=== PATIENT | female | born 1950 | race Caucasian/White ===

== ENCOUNTER 2024-12-22 13:44 | Emergency (ER) | payer MEDICARE, OTHER, SELFPAY ==
[2024-12-22 13:46] VITALS: BP 141/74
[2024-12-22 15:08] VITALS: BP 125/67
[2024-12-22 15:33] VITALS: BP 125/67; BMI 31.4
--- NOTE | 2024-12-22 15:58 | ED.GENMED ---
History of Present Illness
<Holly Ruiz PA-C - Last Filed: 12/24/24 01:34>
General
Chief Complaint: Bowel Problem
Source: patient
Exam Limitations: none
Time Seen by Provider: 12/22/24 15:47
Nursing documentation reviewed up to this point in time: agreed with
History of Present Illness
History of Present Illness:
TIME OF INITIAL EVALUATION
-3:45PM
REVIEW OF OLD RECORDS
- History of cholecystectomy and appendectomy
Note:
CHIEF COMPLAINT(S)
Urinary frequency and abdominal pain.
HISTORY OF PRESENT ILLNESS
The patient is a 74-year-old female presenting with urinary frequency and abdominal pain. The urinary symptoms began approximately two days ago and are characterized by increased frequency and mild burning sensation, similar to a urinary tract
infection, but without hematuria. The patient reports a history of urinary frequency since undergoing bilateral knee replacement surgery in 2014, which has recently worsened.
The lower abdominal pain began three days ago, described as severe and intermittent, initially severe enough to disrupt sleep over two nights. The pain subsided and then recurred. The patient reports continuous pain at rest and during urination.
She also reports constipation, with the last bowel movement occurring three days ago, and describes her stool as inconsistent, alternating between heena and diarrhea.
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 Patient denies fever or vomiting but reports increased thirst and decreased appetite over the last few days, consuming
mainly peanut butter, rice cakes, and yogurt.
The patient does not recall any specific factors relieving or worsening the symptoms. She has a past surgical history of cholecystectomy and appendectomy.
PHYSICAL EXAM
- Vitals: Hypertensive, otherwise vital signs stable. Afebrile
- General: Well appearing in no distress
- HEENT: Moist oral mucosa
- Cardiovascular: No murmurs, normal heart rate, regular rhythm, No chest wall tenderness
- Pulmonary: No respiratory distress, breath sounds are clear and equal
- Abdomen: Soft, diffuse lower abdominal tenderness with voluntary guarding. No rebound tenderness. No CVA tenderness.
- Neurologic: Excellent strength all extremities, no coordination deficits
- Psychiatric: Appropriate mental status, normal insight and judgement
- Extremities: Nontender, no edema, moves all extremities equally
- Skin: No rash, no lesions
PLAN
1. Order laboratory tests, including urinalysis, to assess for infection.
2. Obtain CT scan of the abdomen and pelvis to evaluate potential causes of abdominal pain, such as bladder or intestinal issues.
3. Administer intravenous fluids due to decreased oral intake and increased thirst. Patient declines analgesia.
4. Monitor and treat potential constipation if confirmed by imaging and lab work.
DIFFERENTIAL DIAGNOSIS
The Differential Diagnosis includes, in no particular order and is not limited to:
1. Urinary Tract Infection
2. Bladder dysfunction or prolapse
3. Constipation
4. Bowel obstruction
5. Diverticulitis
6. Irritable Bowel Syndrome
7. Dehydration
8. Cystitis
9. Pelvic inflammatory disease
10. Ovarian pathology
RADIOLOGY
- CT scan abdomen/pelvis ordered
LABS
- Labs reviewed significant for a leukocytosis of 13.7. Chemistry unremarkable. Urine appears infected as noted by nitrite positive, 2+ leukocyte esterase and moderate bacteria however few WBCs.
UPDATE
- Case signed out to Olga Vizcarra PA-C pending CT report
Review of Systems
<Holly Ruiz PA-C - Last Filed: 12/24/24 01:34>
Review of Systems
Allergies reviewed?: Yes
All Other Systems: ROS reviewed and negative except as documented in HPI and ROS
Phy Exam
<Holly Ruiz PA-C - Last Filed: 12/24/24 01:34>
Physical Exam
Physical Exam:
See HPI
Course
<Holly Ruiz PA-C - Last Filed: 12/24/24 01:34>
Orders/Labs/Results
Orders:
Orders
12/22/24 16:21
0.9% Sodium Chloride 1000 ml [Nss] 1,000 ml IV BOLUS
12/22/24 16:24
CT Abd/pelvis W Iv Cont Urgent
Comment:
Reason For Exam: lower abd pain, constipation, urinary frequency
12/22/24 16:59
Basic Metabolic Panel Urgent
Complete Blood Count/With Diff Urgent
Lipase Urgent
Urinalysis Reflex To Culture Urgent
Date Specimen was Collected: 12/22/24
Time Specimen was Collected: 16:58
Urine Microscopic Reflex Cult Urgent
Urine Culture Urgent
ZOE Source: U
Specimen Description:
Date Specimen was Collected: 12/22/24
Time Specimen was Collected: 16:58
12/22/24 19:00
Amoxicillin 875 mg/Clav 125 mg [Augmentin 875 mg/125 mg] 1 tablet PO NOW STA
Ketorolac [Toradol] 15 mg IV NOW STA
Abnormal Lab Results
12/22/24
16:59
WBC 13.7 H 10^3/uL
(4.8-10.8)
RBC 3.82 L 10^6/uL
(4.20-5.40)
Hgb 11.9 L g/dL
(12.0-16.0)
Hct 35.5 L %
(37.0-47.0)
MCH 31.2 H pg
(27.0-31.0)
Abs Immat Gran (auto) 0.1 H 10^3/uL
(0-0.05)
Absolute Neuts (auto) 10.1 H 10^3/uL
(1.4-6.5)
Absolute Monos (auto) 1.6 H 10^3/uL
(0.1-0.6)
Lymphocytes % 12.4 L %
(20.5-51.1)
Monocytes % 11.9 H %
(1.7-9.3)
Sodium 134 L mmol/L
(135-145)
Urine Ketones 3+ A
(Negative)
Ur Occult Blood Reflex 1+ A
(Negative)
Urine Nitrite (Reflex) Positive A
(Negative)
Leukocyte Esterase Rfl 2+ A
(Negative)
Urine Bacteria (Reflex) Moderate A
(Negative)
Urine Albumin (Reflex) 2+ A
(Neg - Trace)
12/22/24 16:59
12/22/24 16:59
Vital Signs
Initial and Last Documented VS:
Initial Vital Signs
Temp Pulse Resp BP Pulse Ox
98.3 F 88 16 141/74 98
12/22/24 13:46 12/22/24 13:46 12/22/24 13:46 12/22/24 13:46 12/22/24 13:46
Last Documented Vital Signs
Temp Pulse Resp BP Pulse Ox
97.9 F 72 18 139/84 97
12/22/24 19:21 12/22/24 19:21 12/22/24 19:21 12/22/24 19:21 12/22/24 19:21
Evelialt;Olga Vizcarra PA-C - Last Filed: 12/22/24 20:32>
Orders/Labs/Results
Orders:
Orders
12/22/24 16:21
0.9% Sodium Chloride 1000 ml [Nss] 1,000 ml IV BOLUS
12/22/24 16:24
CT Abd/pelvis W Iv Cont Urgent
Comment:
Reason For Exam: lower abd pain, constipation, urinary frequency
12/22/24 16:59
Basic Metabolic Panel Urgent
Complete Blood Count/With Diff Urgent
Lipase Urgent
Urinalysis Reflex To Culture Urgent
Date Specimen was Collected: 12/22/24
Time Specimen was Collected: 16:58
Urine Microscopic Reflex Cult Urgent
Urine Culture Urgent
ZOE Source: U
Specimen Description:
Date Specimen was Collected: 12/22/24
Time Specimen was Collected: 16:58
12/22/24 19:00
Amoxicillin 875 mg/Clav 125 mg [Augmentin 875 mg/125 mg] 1 tablet PO NOW STA
Ketorolac [Toradol] 15 mg IV NOW STA
Abnormal Lab Results
12/22/24
16:59
WBC 13.7 H 10^3/uL
(4.8-10.8)
RBC 3.82 L 10^6/uL
(4.20-5.40)
Hgb 11.9 L g/dL
(12.0-16.0)
Hct 35.5 L %
(37.0-47.0)
MCH 31.2 H pg
(27.0-31.0)
Abs Immat Gran (auto) 0.1 H 10^3/uL
(0-0.05)
Absolute Neuts (auto) 10.1 H 10^3/uL
(1.4-6.5)
Absolute Monos (auto) 1.6 H 10^3/uL
(0.1-0.6)
Lymphocytes % 12.4 L %
(20.5-51.1)
Monocytes % 11.9 H %
(1.7-9.3)
Sodium 134 L mmol/L
(135-145)
Urine Ketones 3+ A
(Negative)
Ur Occult Blood Reflex 1+ A
(Negative)
Urine Nitrite (Reflex) Positive A
(Negative)
Leukocyte Esterase Rfl 2+ A
(Negative)
Urine Bacteria (Reflex) Moderate A
(Negative)
Urine Albumin (Reflex) 2+ A
(Neg - Trace)
12/22/24 16:59
12/22/24 16:59
Vital Signs
Initial and Last Documented VS:
Initial Vital Signs
Temp Pulse Resp BP Pulse Ox
98.3 F 88 16 141/74 98
12/22/24 13:46 12/22/24 13:46 12/22/24 13:46 12/22/24 13:46 12/22/24 13:46
Last Documented Vital Signs
Temp Pulse Resp BP Pulse Ox
97.9 F 72 18 139/84 97
12/22/24 19:21 12/22/24 19:21 12/22/24 19:21 12/22/24 19:21 12/22/24 19:21
<Holly Ruiz PA-C - Last Filed: 12/24/24 01:34>
*Radiology
Radiology exam reviewed: radiology read reviewed
*Pulse Oximetry
SaO2: 96
Oxygen Mode of Delivery: Room air
Patient hypoxic: no
*EKG
Interpreted by ED Provider?: NA
*Technical Writing Lead/Mgr Interpretation
Rate: Technical Writing Lead/Mgr- N/A
*Critical Care Note
Total Time (30-74mins, 75-104mins- exclusive of procedures): Not Applicable
<Olga Vizcarra PA-C - Last Filed: 12/22/24 20:32>
Update Note
Update Note:
Update
I received patient in signout. On my evaluation, patient is well-appearing in no acute distress. She has minimal abdominal tenderness on exam but is requesting a dose of pain medication prior to discharge. Will order dose of Toradol. CT scan
reveals acute diverticulitis with no evidence of perforation as well as acute cystitis. She is a candidate for outpatient abx therapy as she is afebrile, she is tolerating p.o. intake, she has a reassuring abdominal exam. Will send Augmentin to
patient's pharmacy. Strict return precautions discussed. Patient stable for discharge. Patient does have no primary care provider to follow-up with. I did send patient's information to the PCP request hotline and will give patient a number to
schedule appointment.
ED Attending Note
<Holly Ruiz PA-C - Last Filed: 12/24/24 01:34>
-
Portions of this chart may have been created with voice recognition software.� Occasional wrong word or��sound alike� substitutions may have occurred due to the inherent limitations of voice recognition software.
Discharge Plan
Departure
Patient Disposition: Home (Routine Discharge)
Date of Disposition: 12/22/24
Time of Disposition: 19:11
Patient with high blood pressure during this ER visit?: Yes
Condition: Good
Discharge Problem:
Acute cystitis, Acute diverticulitis
Instructions: Urinary tract infection - Discharge instructions, Diverticulitis - Discharge instructions
Prescriptions:
New
amoxicillin-pot clavulanate 875-125 mg tablet
1 tab PO BID 10 Days Qty: 20 0RF
No Action
latanoprost 1 DROP drops
1 drp BOTH EYES HS
methylphenidate HCl 10 MG tablet
20 mg PO BID Qty: 0 0RF
duloxetine 60 MG capsule,delayed release(DR/EC)
120 mg PO DAILY
levothyroxine 75 MCG tablet
75 mcg PO TH
levothyroxine 75 MCG tablet
75 mcg PO SUMOWEFRSA
bupropion HCl 150 MG tablet extended release 24 hr
150 mg PO DAILY
pumpkin seed extract-soy germ [Azo Bladder Control] 300 MG capsule
1 cap PO BID
Bio 4x 1 CAP
1 cap PO MEALS
Carb C6 1 CAP
1 cap PO DAILY
nebivolol [Bystolic] 5 MG tablet
1 tab PO HS
sennosides [senna] 1 TABLET tablet
2 tab PO BID 0RF
acetaminophen 325 MG tablet
650 mg PO Q6H Qty: 1 0RF
Rx Instructions:
*DO NOT EXCEED 4000/MG/24H
magnesium hydroxide 30 ML suspension
30 ml PO HS Qty: 1 0RF
Rx Instructions:
take nightly until bm
aspirin 325 MG tablet,delayed release (DR/EC)
325 mg PO DAILY 0RF
levothyroxine 150 MCG tablet
150 mcg PO TU@0700 0RF
oxycodone 5 MG tablet
5 mg PO Q4HPRN PRN (Reason: severe pain) Qty: 30 0RF
Rx Instructions:
dx tka
ongoing therapy
famotidine 20 MG tablet
20 mg PO HS Qty: 30 0RF
Rx Instructions:
TAKE WHILE OF ASA AND ADVIL
ibuprofen 200 MG tablet
400 mg PO BID Qty: 1 0RF
Rx Instructions:
*WITH FOOD
*DO NOT TAKE WITHIN 2 HR OF ASA
vitamins A,C,O-rpxe-jlbjky [PreserVision AREDS] 1 CAP capsule
1 cap PO BID Qty: 0 0RF
Rx Instructions:
RESUME 5 DAYS
Referrals:
Tato Lambert MD [Active, Gastroenterology] - Call in 1-3 days for appt
Destin Henriquez MD [Active, Family Practice] - Call in 1-3 days for appt
UNKNOWN - PT DOES,NOT KNOW [Family Provider]
Activity Restrictions/Additional Instructions:
Augmentin has been sent to your pharmacy. Please take 1 tablet twice daily for 10 days.
Please call attached number to schedule follow-up appointment with the PCP. I did send your information to our PCP request hotline.
PLEASE RETURN EMERGENCY DEPARTMENT SHOULD YOU DEVELOP FEVERS OR CHILLS, ACUTE WORSENING OF YOUR PAIN, LIGHTHEADEDNESS, DIZZINESS, CHEST PAIN, SHORTNESS OF BREATH, OR ANY OTHER SIGNS OR SYMPTOMS CONCERNING TO YOU.
Interventions
Interventions:
*Risk Screen - Suicide Last Done: 12/22/24 13:46
*General Assessment Last Done: 12/22/24 15:35
*Neglect/Abuse Screening Last Done: 12/22/24 13:46
*ED- Fall Risk Assessment Last Done: 12/22/24 15:35
*ED COVID-19 Vaccine History Last Done: 12/22/24 15:35
*Nursing Disposition Last Done: 12/22/24 19:21
DF-Ltcldn-Tkmafkxcvt Assessment Last Done: 12/22/24 15:35
Discharge Date and Time
Discharge Date/Time: 12/22/24 19:48
Print Language: CITIZEN OF [place]
[2024-12-22 17:03] VITALS: BP 129/73
[2024-12-22] MEDS: NSS 1000 IV (17:19)
[2024-12-22 17:40] LABS: % Basophils 0.1 % (0-2); % Immature Granulocytes 0.4 % (0-0.5); % Lymphocytes 12.4 % (20.5-51.1); % Monocytes 11.9 % (1.7-9.3); % Neutrophils 74.2 % (42.2-75.2); Absolute Eosinophils 0.1 10^3/uL (0-0.7); Absolute Immature Granulocytes 0.1 10^3/uL (0-0.05); Absolute Lymphocytes 1.7 10^3/uL (1.2-3.4); Absolute Monocytes 1.6 10^3/uL (0.1-0.6); Absolute Neutrophils 10.1 10^3/uL (1.4-6.5); Hematocrit 35.5 % (37.0-47.0); Hemoglobin 11.9 g/dL (12.0-16.0); Mean Corp Hgb Conc. 33.5 g/dL (33.0-37.0); Mean Corpuscular Hgb 31.2 pg (27.0-31.0); Mean Corpuscular Volume 92.9 fL (81.0-99.0); Mean Platelet Volume 9.7 fL (7.4-10.4); Nucleated Red Blood Cells % 0 %; Platelet Count 248 10^3/uL (130-400); Red Blood Cell Count 3.82 10^6/uL (4.20-5.40); Red Cell Dist. Width 12.3 % (11.5-14.5); White Blood Cell Count 13.7 10^3/uL (4.8-10.8)
[2024-12-22 17:42] LABS: Urine Albumin 2+ (Neg - Trace); Urine Bilirubin Negative (Negative); Urine Character Cloudy (Clear); Urine Color Yellow; Urine Glucose Negative (Negative); Urine Ketone 3+ (Negative); Urine Leukocyte 2+ (Negative); Urine Nitrite Positive (Negative); Urine Occult Blood 1+ (Negative); Urine Specific Gravity 1.025 (<1.030); Urine Urobilinogen Negative (Neg - 1+)
[2024-12-22 17:50] LABS: Urine Squamous Cell 0-2 /LPF (Few)
[2024-12-22 17:51] LABS: Urine Bacteria Moderate (Negative); Urine Red Blood Cell 0-2 /HPF (0-2)
[2024-12-22 17:56] LABS: Blood Urea Nitrogen 16 mg/dl (7-17); Calcium 8.7 mg/dl (8.4-10.2); Carbon Dioxide 24 mmol/L (22-30); Chloride 103 mmol/L (98-107); Estimated Creatinine Clearance 80 ml/min; Glucose 92 mg/dl (70-99); Lipase 117 U/L (23-300); Sodium 134 mmol/L (135-145); eGFR > 60.00
[2024-12-22 19:14] VITALS: BP 139/84
[2024-12-22] MEDS: AUGMENTIN 875 MG/125 MG 1 TABLET PO (19:15)
[2024-12-22] MEDS: TORADOL 15 MG IV (19:16)
[2024-12-22 19:21] VITALS: BP 139/84
== END 2024-12-22 19:48 | disposition home or self-care (01) ==
LOC: EMR 13:44
PROVIDERS: Physician Assistant; EMERGENCY PHYSICIAN Emergency Medicine
DX: N30.00 Acute cystitis without hematuria (principal); K57.32 Diverticulitis of large intestine without perforation or abscess without bleeding
CPT/HCPCS: 99285; 96374; 96361; 74177; 80048; 81003; 81015; 83690; 85025; 87086; Q9967

== ENCOUNTER → 2025-02-07 14:43 | Outpatient (REF) | payer MEDICARE, SELFPAY | LOC: WDC 14:43 | PROVIDERS: ATTENDING PHYSICIAN Physician Assistant | DX: Z12.31 Encounter for screening mammogram for malignant neoplasm of breast (principal) | CPT/HCPCS: 77063; 77067 ==

== ENCOUNTER 2025-07-03 06:18 | Day surgery (SDC) | payer MEDICARE, SELFPAY | END 2025-07-03 10:34 | disposition home or self-care (01) | LOC: GI 06:18 | PROVIDERS: ATTENDING PHYSICIAN Internal Medicine Gastroenterology | DX: K57.32 Diverticulitis of large intestine without perforation or abscess without bleeding (principal); K63.89 Other specified diseases of intestine; K64.8 Other hemorrhoids; Z98.0 Intestinal bypass and anastomosis status; K57.30 Diverticulosis of large intestine without perforation or abscess without bleeding | CPT/HCPCS: 45378 ==